=== PATIENT | female | born 1995 | race African-American/Black ===

== ENCOUNTER 2016-12-02 21:24 | Emergency (ER) | payer OTHER ==
[~2016-12-02] VITALS: Ht 172.7 cm; Wt 59.9 kg
[~2016-12-02 21:24] MED LIST: OCUFLOX5 ML OP
[2016-12-02 21:54] VITALS: BP 142/67
--- NOTE | 2016-12-02 21:58 | Emergency Room Report ---
History of Present Illness General Chief Complaint: Sore Throat Source: Patient Present Illness [facility] This is a 21-year-old female with no past medical history. Patient presents with sore throat for last 2 days. Worse with swallowing. No fever or chills. Slightly congested. Also with a slight cough. Denies any other complaint. No nausea no vomiting. No drooling. Allergies: Coded Allergies: No Known Allergies (Unverified , 03/11/16) Patient History Past Medical History: none Past Surgical History: none Pertinent Family History: none Social History: Denies: smoking Last Menstrual Period: 11/05/16 Now: No Immunizations: other Reviewed Nursing Documentation: PMH: Agreed, PSxH: Agreed Nursing Documentation-PMH Past Medical History: No History, Except For Review of Systems Eye: Denies: blurred vision, eye pain ENT: Reports: throat pain Respiratory: Reports: cough Cardiovascular: Denies: chest pain, palpitations Gastrointestinal: Denies: abdominal pain, diarrhea, nausea, vomiting Musculoskeletal: Denies: back pain, joint pain Skin: Denies: rash Neurological: Denies: headache, numbness Endocrine: Denies: increased thirst, increased urine Hematologic/Lymphatic: Denies: easy bruising All Other Systems: negative except mentioned in HPI Physical Exam Vital Signs Date Time Temp Pulse Resp B/P Pulse Ox O2 Delivery O2 Flow Rate FiO2 12/02/16 21:44 98.1 100 16 142/67 100 Room Air vitals normal. Sp02 EP Interpretation: reviewed, normal General Appearance: well appearing, no apparent distress, alert Head: normocephalic, atraumatic Eyes: bilateral eye EOMI, bilateral eye PERRL ENT: hearing grossly normal, pharyngeal erythema Neck: full range of motion, supple, no meningismus Respiratory: chest non-tender, lungs clear, normal breath sounds Cardiovascular #1: regular rate, rhythm, no murmur Gastrointestinal: normal bowel sounds, non tender, no mass, no organomegaly, no bruit, non-distended Musculoskeletal: back normal, gait/station normal, normal range of motion Neurologic: alert, oriented x3 Psychiatric: mood/affect normal Skin: warm/dry Medical Decision Making Diagnostic Impression: Primary Impression: Pharyngitis Qualified Codes: J02.9 - Acute pharyngitis, unspecified ER Course Patient with pharyngitis. Most likely viral in nature. I will write for antibiotics but told patient to hold off for 3-4 days. If not better or worsen , go ahead and fill antibiotic prescription. Otherwise symptomatically. I see no evidence of retropharyngeal abscess, peritonsillar abscess or [place] angina. Last Vital Signs Date Time Temp Pulse Resp B/P Pulse Ox O2 Delivery O2 Flow Rate FiO2 12/02/16 21:44 98.1 100 16 142/67 100 Room Air Status: unchanged Disposition: HOME, SELF-CARE Condition: Stable Scripts Azithromycin* (ZITHROMAX*) 250 Mg Tablet 250 MG ORAL DAILY, #6 TAB 0 Refills Take two tablets by mouth today, then take one tablet by mouth daily for four days Prov: AZEB LENTZ M.D. 12/02/16 Patient Instructions: Sore Throat Additional Instructions: Increase fluids. Salt water gargle. Follow up with your Dr. in 7 days. Return if symptom worsen. Hold antibiotics for 3-4 days. You may not need it if symptom it better or resolved. AZEB LENTZ M.D. Dec 02, 2016 21:58
[2016-12-02] MEDS ORDERED: AZITHROMYCIN250 MG ORAL (22:00)
[2016-12-02 22:29] VITALS: BP 142/67
== END 2016-12-02 22:35 | disposition home or self-care (01) ==
LOC: EMR 22:13
DX: J02.9 Acute pharyngitis, unspecified (principal)
CPT/HCPCS: 99283

== ENCOUNTER 2017-05-06 20:38 | Emergency (ER) | payer OTHER ==
[~2017-05-06] VITALS: Ht 172.7 cm; Wt 61.2 kg
[~2017-05-06 20:38] MED LIST changes: +AZITHROMYCIN250 MG ORAL
[2017-05-06] MEDS ORDERED: OMEPRAZOLE20 M2 ORAL (20:51)
[2017-05-06 21:09] VITALS: BP 117/78
[2017-05-06] MEDS ORDERED: IBUPROFEN600 MG ORAL (21:11)
[2017-05-06] MEDS ORDERED: CYCLOBENZAPRINE10 MG ORAL (21:11)
--- NOTE | 2017-05-06 21:11 | Emergency Room Report ---
History of Present Illness General Chief Complaint: Neck Pain Source: Patient Present Illness HPI This is a 21-year-old female with no past medical history. She present with chief complaint of neck and upper back pain. Woke up with this. No trauma. Worse with certain movement. Pain is 7/10. Has not take any medication for it. No fever or chills. No nausea vomiting. No cough or congestion. No focal deficit. No numbness. Allergies: Coded Allergies: No Known Allergies (Unverified , 03/11/16) Patient History Past Medical History: none, see triage record, old chart reviewed Past Surgical History: none Pertinent Family History: none Social History: Denies: smoking Last Menstrual Period: 05/02/17 Now: No : 2 Para: 0 Immunizations: other Reviewed Nursing Documentation: PMH: Agreed, PSxH: Agreed Nursing Documentation-PMH Past Medical History: No History, Except For Hx Gastrointestinal Problems: Yes - acid reflux Review of Systems Eye: Denies: blurred vision, eye pain ENT: Denies: ear pain, nose congestion, throat swelling Respiratory: Denies: cough, shortness of breath Cardiovascular: Denies: chest pain, palpitations Gastrointestinal: Denies: abdominal pain, diarrhea, nausea, vomiting Musculoskeletal: Reports: back pain, Denies: joint pain Skin: Denies: rash Neurological: Denies: headache, numbness Endocrine: Denies: increased thirst, increased urine Hematologic/Lymphatic: Denies: easy bruising All Other Systems: negative except mentioned in HPI Physical Exam Vital Signs Date Time Temp Pulse Resp B/P Pulse Ox O2 Delivery O2 Flow Rate FiO2 05/06/17 20:48 99.3 81 18 117/78 99 Room Air vitals normal Sp02 EP Interpretation: reviewed, normal General Appearance: well appearing, no apparent distress, alert Head: normocephalic, atraumatic Eyes: bilateral eye EOMI, bilateral eye PERRL ENT: hearing grossly normal, normal pharynx Neck: full range of motion, supple, no meningismus, tender - Mild tenderness over the right trapezius muscle. No midline tenderness. Full range of motion Respiratory: chest non-tender, lungs clear, normal breath sounds Cardiovascular #1: regular rate, rhythm, no murmur Gastrointestinal: normal bowel sounds, non tender, no mass, no organomegaly, no bruit, non-distended Musculoskeletal: back normal, gait/station normal, normal range of motion Psychiatric: mood/affect normal Skin: warm/dry Medical Decision Making Diagnostic Impression: Primary Impression: Neck pain ER Course Patient presents with muscle strain. No fracture. No trauma to warrant x- rays. No red flags indicate cauda equina syndrome, spinal epidural abscess or neoplastic process. We'll discharge home. Last Vital Signs Date Time Temp Pulse Resp B/P Pulse Ox O2 Delivery O2 Flow Rate FiO2 05/06/17 20:48 99.3 81 18 117/78 99 Room Air Status: unchanged Disposition: HOME, SELF-CARE Condition: Stable Scripts Cyclobenzaprine Hcl* (FLEXERIL*) 10 Mg Tablet 10 MG ORAL TID Y for Muscle Spasm, #20 TAB Prov: AZEB LENTZ M.D. 05/06/17 Ibuprofen* (MOTRIN*) 600 Mg Tablet 600 MG ORAL THREE TIMES A DAY, #30 TAB 0 Refills Prov: AZEB LENTZ M.D. 05/06/17 Patient Instructions: NECK PAIN, No Trauma Additional Instructions: Followup with your DrSuze in 7 days. Return if symptom worsen. AZEB LENTZ M.D. May 06, 2017 21:11
[2017-05-06 21:23] VITALS: BP 117/78
== END 2017-05-06 21:23 | disposition home or self-care (01) ==
LOC: EMR 21:06
DX: M54.2 Cervicalgia (principal); K21.9 Gastro-esophageal reflux disease without esophagitis
CPT/HCPCS: 99284

== ENCOUNTER 2017-06-12 11:50 | Emergency (ER) | payer OTHER ==
[~2017-06-12] VITALS: Ht 172.7 cm; Wt 61.2 kg
[~2017-06-12 11:50] MED LIST changes: +CYCLOBENZAPRINE10 MG ORAL; +IBUPROFEN600 MG ORAL; +OMEPRAZOLE20 M2 ORAL
[2017-06-12 12:01] VITALS: BP 124/80
[2017-06-12] MEDS ORDERED: Mylanta II UD 30ml ORAL ONE (13:30)
[2017-06-12] MEDS ORDERED: Lidocaine 2% Visc 15ml soln ORAL ONE (13:30)
--- NOTE | 2017-06-12 13:55 | Emergency Room Report ---
History of Present Illness General Chief Complaint: Sore Throat Source: Patient Present Illness HPI 21-year-old female presents to the emergency department complaining of 10 out of 10 in severity for her pain that she describes as burning since this morning. Patient states she was having difficulty acid reflux last night. Patients reports having a history of acid reflux in addition to her recent treatment for H. pylori infection. Patient states she has a followup appointment with her doctor for reevaluation next week. Patient denies fevers, chills, nausea, vomiting. Patient denies difficulty breathing or painful respirations. She denies blood in the stool or dark tarry stools. She currently denies abdominal pain or tenderness. Patient denies . Her eyes fevers, chills, body aches or ill contacts. Denies CP, Palpitations, LOC, AMS, dizziness, Changes in Vision, Sensation, paresthesias, or a sudden severe headache. 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 Allergies: Coded Allergies: No Known Allergies (Unverified , 03/11/16) Patient History Past Medical History: see triage record, GERD Past Surgical History: none Pertinent Family History: none Last Menstrual Period: 05/22/17 Now: No : 2 Para: 0 Immunizations: UTD Reviewed Nursing Documentation: PMH: Agreed, PSxH: Agreed Nursing Documentation-PMH Past Medical History: No History, Except For Hx Gastrointestinal Problems: Yes - acid reflux Review of Systems All Other Systems: negative except mentioned in HPI Physical Exam Vital Signs Date Time Temp Pulse Resp B/P (MAP) Pulse Ox O2 Delivery O2 Flow Rate FiO2 06/12/17 12:01 97.9 95 18 124/80 100 Room Air Sp02 EP Interpretation: reviewed, normal General Appearance: no apparent distress, alert, GCS 15, non-toxic Head: normocephalic, atraumatic Eyes: bilateral eye normal inspection, bilateral eye PERRL ENT: hearing grossly normal, normal pharynx, no angioedema, normal voice, pharyngeal erythema Neck: full range of motion, supple/symm/no masses Respiratory: chest non-tender, lungs clear, normal breath sounds, speaking full sentences Cardiovascular #1: regular rate, rhythm Gastrointestinal: normal bowel sounds, non tender, soft, no guarding, no rebound Rectal: deferred Musculoskeletal: back normal, gait/station normal, normal range of motion, non- tender, no calf tenderness Neurologic: alert, oriented x3, responsive, motor strength/tone normal, sensory intact, speech normal Psychiatric: judgement/insight normal, memory normal, mood/affect normal Skin: normal color, no rash, warm/dry, well hydrated Lymphatic: no adenopathy Medical Decision Making PA Attestation Dr. Marques is my supervising Physician whom patient management has been discussed with. Diagnostic Impression: Primary Impression: Reflux pharyngitis ER Course Pt. presents to the ED c/o : sore throat, tonsillar swelling, and nasal congestion x 2 days Ddx considered but are not limited to: GERD, pharyngitis, strep, CLASSIFIED AD CLERK, ludwigs angina, URI just to name a few. Vital signs: are WNL, pt. is afebrile H&PE are most consistent with: reflux pharyngitis, throat is non-infectious in appearance, pt. does not meet centor criteria. ORDERS: None required at this time as the diagnosis is clinical ED INTERVENTIONS: -GI Cocktail -Pt reports pain is relieved with above interventions. d/w pt. proper follow up with GI Specialist and her PMD. gave pt. ED return precautions for worsening or new symptoms. DISCHARGE: At this time pt. is stable for d/c to home. Will provide printed patient care instructions, and any necessary prescriptions. Care plan and follow up instructions have been discussed with the patient prior to discharge. Last Vital Signs Date Time Temp Pulse Resp B/P (MAP) Pulse Ox O2 Delivery O2 Flow Rate FiO2 06/12/17 12:01 97.9 95 18 124/80 100 Room Air Disposition: HOME, SELF-CARE Condition: Stable Scripts Mag Hydrox/Al Hydrox/Simeth (ALUM-MAG HYDROXIDE-SIMETH LIQ) 360 Ml Oral.susp 15 ML PO TID, #360 ML Prov: Niki Shields P.ASuze 06/12/17 Lidocaine HCl 2% Viscous (Lidocaine HCl 2% Viscous) 100 Ml Solution 15 ML ORAL QID, #200 ML Prov: Niki Shields P.A. 06/12/17 Esomeprazole Magnesium (NEXIUM) 40 Mg Capsule.dr 40 MG ORAL DAILY for 10 Days, #10 CAP Prov: Niki Shields.A. 06/12/17 Patient Instructions: Esophagitis, Food Choices for Gastroesophageal Reflux Disease, Adult Additional Instructions: Take medications as directed. Follow up with a Primary Care Provider in 3-5 days, even if your symptoms have resolved. GI SPECIALIST EVALUATION RECOMMENDED. --Please review list of primary care clinics, if you do not already have a primary care provider Return sooner to ED if new symptoms occur, or current symptoms become worse. - Please note that this Emergency Department Report was dictated using [employer] man technology software, occasionally this can lead to erroneous entry secondary to interpretation by the dictation equipment. Niki Shields Jun 12, 2017 13:55
[2017-06-12] MEDS ORDERED: ALUM-MAG HYDRO360 ML PO (13:58)
[2017-06-12] MEDS ORDERED: LIDOCAINE VISC100 ML ORAL (13:58)
[2017-06-12] MEDS ORDERED: NEXIUM40 MG ORAL (13:58)
[2017-06-12 14:20] VITALS: BP 124/80
== END 2017-06-12 14:20 | disposition home or self-care (01) ==
LOC: EMR 12:35
DX: J02.9 Acute pharyngitis, unspecified (principal)
CPT/HCPCS: 99284